=== PATIENT | female | born 1975 | race African-American/Black ===

== ENCOUNTER 2017-06-10 23:06 | Emergency (ER) | payer BC ==
[2017-06-10 23:16] VITALS: BP 188/100
--- NOTE | 2017-06-11 00:49 | RADIOLOGY REPORT (SQ) ---
EXAM DESCRIPTION: KNEE LEFT 3 VIEWS COMPLETED DATE/TIME: 06/11/2017 12:34 am REASON FOR STUDY: fall . Pain anterior left knee. COMPARISON: Left knee x-ray 05/06/2010. NUMBER OF VIEWS: Three views. TECHNIQUE: AP, lateral, and sunrise patella radiographic images acquired of the left knee. LIMITATIONS: Patient's body habitus and positioning. FINDINGS: MINERALIZATION: Normal. BONES: No acute fracture or dislocation. There are tricompartmental degenerative changes, worse at t he patellofemoral compartment. JOINT: Small effusion. SOFT TISSUES: No radio-opaque foreign body. IMPRESSION: No radiographic evidence of acute fracture. Small joint effusion. Degenerative changes . If clinical concern persists, MRI can be obtained to evaluate for ligamentous injury. TECHNICAL DOCUMENTATION: JOB ID: [id number] 2010 [employer] All Rights Reserved
--- NOTE | 2017-06-11 00:53 | RADIOLOGY REPORT (SQ) ---
EXAM DESCRIPTION: FOOT RIGHT COMPLETE COMPLETED DATE/TIME: 06/11/2017 12:34 am REASON FOR STUDY: fall . Pain lateral side right foot. COMPARISON: None. NUMBER OF VIEWS: Three views. TECHNIQUE: AP, lateral and oblique radiographic images acquired of the right foot. LIMITATIONS: None. FINDINGS: MINERALIZATION: Normal. BONES: No acute fracture or dislocation. Degenerative changes are seen at the 1st metatarsophalangea l joint. Bony spurs are noted at the calcaneus. SOFT TISSUES: No radiopaque foreign body. IMPRESSION: No radiographic evidence of acute fracture. TECHNICAL DOCUMENTATION: JOB ID: [id number] 2010 [employer]- All Rights Reserved
--- NOTE | 2017-06-11 01:20 | ER Document Report ---
ED General - General Chief Complaint: Fall Stated Complaint: FOOT AND KNEE PAIN Time Seen by Provider: 06/10/17 23:58 Notes: Patient is a 41-year-old female with past medical history of morbid obesity who presents after having a mechanical fall landing onto her left knee and twisting her right ankle. She presents complaining of a dull, constant, aching pain to the left knee and the right ankle as well as the base of the right foot. Denies any syncope as the cause for today's episode. States she believes she tripped over something while walking out of her car. No history of similar injuries in the past. She has tried pain medication that she has at home without significant improvement in her pain. TRAVEL OUTSIDE OF THE [place] IN LAST 30 DAYS: No - Related Data Allergies/Adverse Reactions: Penicillins Allergy (Intermediate, Verified 06/10/17 23:14) Hives Past Medical History - General Information source: Patient - Social History Smoking Status: Never Smoker Frequency of alcohol use: None Drug Abuse: None Family History: Arthritis, CAD, CVA, DM, Hyperlipidemia, Hypertension, Malignancy Patient has suicidal ideation: No Patient has homicidal ideation: No - Past Medical History Cardiac Medical History: Reports: Hx Hypertension Denies: Hx Coronary Artery Disease, Hx Heart Attack Pulmonary Medical History: Denies: Hx Asthma, Hx Bronchitis, Hx COPD, Hx Pneumonia Neurological Medical History: Denies: Hx Cerebrovascular Accident, Hx Seizures Renal/ Medical History: Denies: Hx Peritoneal Dialysis Musculoskeltal Medical History: Reports Hx Arthritis Past Surgical History: Reports: Hx Gynecologic Surgery - ovarian cyst, Hx Hysterectomy, Hx Tonsillectomy - addenoidectomy, Hx Tubal Ligation - Immunizations Hx Diphtheria, Pertussis, Tetanus Vaccination: Yes Review of Systems - Review of Systems Notes: Constitutional: Negative for fever. Eyes: Negative for visual changes. ENT: Negative for facial injury Cardiovascular: Negative for chest injury. Respiratory: Negative for shortness of breath. Gastrointestinal: Negative for abdominal injury. Genitourinary: Negative for genital injury Musculoskeletal: Positive for left knee and right ankle injury Skin: Positive for left lower extremity abrasions Neurological: Negative for head injury. Physical Exam - Vital signs Vitals: Temp Pulse Resp BP Pulse Ox 97.7 F 73 18 188/100 H 98 06/10/17 23:15 06/10/17 23:15 06/10/17 23:15 06/10/17 23:15 06/10/17 23:15 Interpretation: Hypertensive Notes: PHYSICAL EXAMINATION: GENERAL: Well-appearing, well-nourished and in no acute distress. HEAD: Atraumatic, normocephalic. EYES: sclera anicteric, conjunctiva are normal. ENT: Moist mucous membranes. NECK: Normal range of motion LUNGS: Normal work of breathing HEART: 2+ radial pulses bilaterally EXTREMITIES: Mild swelling to the left knee. Full flexion extension is present at the left knee. There is diffuse swelling of the right ankle. Point tenderness on palpation of the right lateral malleolus. NEUROLOGICAL: No focal neurological deficits. Moves all extremities spontaneously and on command. PSYCH: Normal mood, normal affect. SKIN: Warm, Dry, normal turgor, superficial abrasions on the proximal tibial surface Course - Re-evaluation Re-evalutation: 06/11/17 01:19 No evidence of a septic joint, gout flare, dislocation, or fracture on exam and imaging. Patient denies any syncopal episode as the preceding event for today' s fall. She did not hit her head or neck. Vitals otherwise within normal limits. She has been placed in a knee brace on the left and Puma wrapped on the right. At this time will discharge with return precautions and follow-up recommendations. Verbal discharge instructions given a the bedside and opportunity for questions given. Medication warnings reviewed. Patient is in agreement with this plan and has verbalized understanding of return precautions and the need for primary care follow-up in the next 24-72 hours. - Vital Signs Vital signs: Temp Pulse Resp BP Pulse Ox 97.7 F 73 18 188/100 H 98 06/10/17 23:15 06/10/17 23:15 06/10/17 23:15 06/10/17 23:15 06/10/17 23:15 - Diagnostic Test Radiology reviewed: Image reviewed, Reports reviewed Radiology results interpreted by me: 06/11/17 03:04 Left knee x-ray: No acute fracture or dislocation Right ankle: No acute fracture or dislocation Right foot: No acute fracture or dislocation Discharge - Discharge Clinical Impression: Fall Qualifiers: Encounter type: initial encounter Qualified Code(s): W19.XXXA - Unspecified fall, initial encounter Left knee injury Qualifiers: Encounter type: initial encounter Qualified Code(s): S89.92XA - Unspecified injury of left lower leg, initial encounter Right ankle injury Qualifiers: Encounter type: initial encounter Qualified Code(s): S99.911A - Unspecified injury of right ankle, initial encounter Condition: Good Disposition: HOME, SELF-CARE Additional Instructions: Your x-ray does not show any acute fracture today. You likely have a ligamentous strain. You should continue to take anti-inflammatories such as ibuprofen 600 mg every 6 hours. Continue to apply ice to the area is much your able. Please follow-up with your primary care physician if you do not have improving your symptoms in the next 1-2 weeks. Please return immediately if you develop weakness, numbness, spreading redness from the area, or any other symptoms that are concerning to you. Referrals: GLORIA LEIGH MD [Primary Care Provider] - Follow up as needed ALVAREZ TOLEDO MD [ACTIVE STAFF] - Follow up as needed
--- NOTE | 2017-06-11 02:47 | RADIOLOGY REPORT (SQ) ---
EXAM DESCRIPTION: ANKLE RIGHT COMPLETE COMPLETED DATE/TIME: 06/11/2017 1:49 am REASON FOR STUDY: fall COMPARISON: None. NUMBER OF VIEWS: Three views. TECHNIQUE: AP, lateral, and oblique radiographic images acquired of the right ankle. LIMITATIONS: None. FINDINGS: MINERALIZATION: Normal. BONES: No acute fracture or dislocation. Bony spurs are seen at the calcaneus. SOFT TISSUES: Diffuse soft tissue swelling. No radiopaque foreign body. IMPRESSION: No radiographic evidence for acute fracture. Diffuse soft tissue swelling. TECHNICAL DOCUMENTATION: JOB ID: [id number] [place]-[id number] 2010 [employer]- All Rights Reserved
== END 2017-06-11 04:19 | disposition home or self-care (01) ==
LOC: EEVIPCON 23:06 → ER 23:06
DX: S89.92XA Unspecified injury of left lower leg, initial encounter (principal); S99.911A Unspecified injury of right ankle, initial encounter; M25.562 Pain in left knee; M25.571 Pain in right ankle and joints of right foot; E66.01 Morbid (severe) obesity due to excess calories; W19.XXXA Unspecified fall, initial encounter
CPT/HCPCS: 99283; 73610; 73630; 73562; L1830

== ENCOUNTER → 2018-04-13 | Outpatient (CLI) | payer BC ==
[2018-04-13 11:36] LABS: ALANINE AMINOTRANSFERASE 17 U/L (9-52); ALBUMIN 3.9 g/dL (3.5-5.0); ALKALINE PHOSPHATASE 91 U/L (38-126); ANION GAP 10 (5-19); ASPARTATE AMINO TRANSFERASE 17 U/L (14-36); BILIRUBIN,DIRECT 0.4 mg/dL (0.0-0.4); BILIRUBIN,TOTAL 0.4 mg/dL (0.2-1.3); BLOOD UREA NITROGEN 14 mg/dL (7-20); CALCIUM 9.2 mg/dL (8.4-10.2); CARBON DIOXIDE 33 mmol/L (22-30); CHLORIDE 103 mmol/L (98-107); CHOLESTEROL 177.77 mg/dL (0-200); GLUCOSE 91 mg/dL (75-110); POTASSIUM 4.7 mmol/L (3.6-5.0); TOTAL PROTEIN 8.2 g/dL (6.3-8.2); TRIGLYCERIDES 42 mg/dL (<150)
[2018-04-13 11:47] LABS: THYROXINE T4 8.54 ug/dL (5.53-11.0)
[2018-04-13 11:48] LABS: DIRECT LDL 81 mg/dL (<100); FREE T3 3.87 pg/mL (2.77-5.27)
[2018-04-13 12:02] LABS: THYROID STIMULATING HORMONE 1.54 uIU/mL (0.47-4.68)
== END ==
LOC: OD 09:24
PROVIDERS: ATTEND Internal Medicine Cardiovascular Disease
DX: I10 Essential (primary) hypertension (principal); E66.9 Obesity, unspecified; R53.83 Other fatigue
CPT/HCPCS: 36415; 80053; 80061; 82306; 82607; 82728; 83036; 83525; 84436; 84443; 84481

== ENCOUNTER 2019-01-24 07:47 | Emergency (ER) | payer BC ==
--- NOTE | 2019-01-24 09:38 | ER Document Report ---
ED General - General Chief Complaint: Vertigo Stated Complaint: DIZZINESS/HEADACHE/BACK PAIN Time Seen by Provider: 01/24/19 08:36 Primary Care Provider: GLORIA LEIGH MD [Primary Care Provider] - Follow up as needed Notes: 43-year-old female patient emergency department for evaluation of dizziness. Patient states that when she lies backwards she gets extremely dizzy but sitting upright no dizziness. She has a headache associated with this. Denies any fever or neck stiffness. Denies any other major symptoms. Does have some mild blurred vision. Head movement does seem to make it worse but mostly when she lies down the dizziness comes on. TRAVEL OUTSIDE OF THE [place] IN LAST 30 DAYS: No - Related Data Allergies/Adverse Reactions: Penicillins Allergy (Intermediate, Verified 06/10/17 23:14) Hives Past Medical History - General Information source: Patient - Social History Smoking Status: Never Smoker Frequency of alcohol use: None Drug Abuse: None Lives with: Family Family History: Arthritis, CAD, CVA, DM, Hyperlipidemia, Hypertension, Malignancy Patient has suicidal ideation: No Patient has homicidal ideation: No - Past Medical History Cardiac Medical History: Reports: Hx Hypertension Denies: Hx Coronary Artery Disease, Hx Heart Attack Pulmonary Medical History: Denies: Hx Asthma, Hx Bronchitis, Hx COPD, Hx Pneumonia Neurological Medical History: Denies: Hx Cerebrovascular Accident, Hx Seizures Renal/ Medical History: Denies: Hx Peritoneal Dialysis Musculoskeletal Medical History: Reports Hx Arthritis Past Surgical History: Reports: Hx Gynecologic Surgery - ovarian cyst, Hx Hysterectomy, Hx Tonsillectomy - addenoidectomy, Hx Tubal Ligation - Immunizations Hx Diphtheria, Pertussis, Tetanus Vaccination: Yes Review of Systems - Review of Systems Notes: Constitutional: denies: Chills, Diaphoresis, Fever, Malaise, Weakness EENT: denies: Eye discharge, Blurred vision, Tearing, Double vision, Nose congestion, Nose discharge, Throat swelling, Mouth pain Cardiovascular: denies: Palpitations, Heart racing, Orthopnea, Dyspnea, Chest pain Respiratory: denies: Cough, Hurts to breathe, Wheezing, Shortness of breath Gastrointestinal: denies: Abdominal pain, Diarrhea, Nausea, Vomiting, Black stools, bright red blood in stool Genitourinary: denies: Burning, Dysuria, Discharge, Frequency, Flank pain, Hematuria Musculoskeletal: denies: Joint pain, Joint swelling, Muscle pain, Muscle s tiffness, back pain Hematologic/Lymphatic: denies: Anemia, Easy bleeding, Easy bruising, Blood leesa ts Neurological/Psychological: denies: Confusion, Dementia, Depression, Loss of consciousness. Is complaining of headache and dizziness Skin: No lesions, no masses, no skin breakdown, no abscesses Physical Exam - Vital signs Vitals: Temp Pulse Resp BP Pulse Ox 98.0 F 84 18 157/118 H 100 01/24/19 07:54 01/24/19 07:54 01/24/19 07:54 01/24/19 07:54 01/24/19 07:54 Interpretation: Normal - General General appearance: Appears well, Alert - HEENT Head: Normocephalic, Atraumatic Eyes: Normal Pupils: PERRL - Respiratory Respiratory status: No respiratory distress Chest status: Nontender Breath sounds: Normal Chest palpation: Normal - Cardiovascular Rhythm: Regular Heart sounds: Normal auscultation Murmur: No - Abdominal Inspection: Normal Distension: No distension Bowel sounds: Normal Tenderness: Nontender Organomegaly: No organomegaly - Back Back: Normal, Nontender - Extremities General upper extremity: Normal inspection, Nontender, Normal color, Normal ROM, Normal temperature General lower extremity: Normal inspection, Nontender, Normal color, Normal ROM, Normal temperature, Normal weight bearing. No: Lucía's sign - Neurological Neuro grossly intact: Yes Cognition: Normal Orientation: AAOx4 Srinath Coma Scale Eye Opening: Spontaneous [place] Coma Scale Verbal: Oriented Srinath Coma Scale Motor: Obeys Commands Srinath Coma Scale Total: 15 Speech: Normal Cranial nerves: Normal Cerebellar coordination: Normal Motor strength normal: LUE, RUE, LLE, RLE Sensory: Normal Notes: When I dropped the head of the bed down with patient looking to the left or to the right she does begin to get dizzy but she has no nystagmus. No rotary nystagmus. No horizontal nystagmus. - Psychological Associated symptoms: Normal affect, Normal mood - Skin Skin Temperature: Warm Skin Moisture: Dry Skin Color: Normal Course - Re-evaluation Re-evalutation: 01/24/19 13:08 Laboratory 01/24/19 01/24/19 01/24/19 09:06 10:05 10:05 WBC 8.0 RBC 4.03 Hgb 10.4 L Hct 32.0 L MCV 79 L MCH 25.7 L MCHC 32.4 RDW 15.3 H Plt Count 196 Seg Neutrophils % 61.4 Lymphocytes % 28.9 Monocytes % 8.1 Eosinophils % 1.0 Basophils % 0.6 Absolute Neutrophils 4.9 Absolute Lymphocytes 2.3 Absolute Monocytes 0.6 Absolute Eosinophils 0.1 Absolute Basophils 0.0 Sodium 143.1 Potassium 4.3 Chloride 106 Carbon Dioxide 29 Anion Gap 8 BUN 16 Creatinine 0.80 Est GFR ( Amer) > 60 Est GFR (Non-Af Amer) > 60 Glucose 103 Hemoglobin A1c % Calcium 9.4 Total Bilirubin 0.5 Direct Bilirubin 0.3 Neonat Total Bilirubin Not Reportable Neonat Direct Bilirubin Not Reportable Neonat Indirect Bili Not Reportable AST 28 ALT 23 Alkaline Phosphatase 90 Creatine Kinase 73 CK-MB (CK-2) Troponin I Total Protein 8.7 H Albumin 4.0 Urine Color YELLOW Urine Appearance SLIGHTLY-CLOUDY Urine pH 5.0 Ur Specific Secor 1.020 Urine Protein NEGATIVE Urine Glucose (UA) NEGATIVE Urine Ketones NEGATIVE Urine Blood NEGATIVE Urine Nitrite NEGATIVE Urine Bilirubin NEGATIVE Urine Urobilinogen NEGATIVE Ur Leukocyte Esterase NEGATIVE Urine WBC (Auto) 1 Urine RBC (Auto) 0 U Hyaline Cast (Auto) 1 Urine Bacteria (Auto) 3+ Squamous Epi Cells Auto 1 Urine Mucus (Auto) RARE Urine Ascorbic Acid NEGATIVE 01/24/19 01/24/19 10:05 10:05 WBC RBC Hgb Hct MCV MCH MCHC RDW Plt Count Seg Neutrophils % Lymphocytes % Monocytes % Eosinophils % Basophils % Absolute Neutrophils Absolute Lymphocytes Absolute Monocytes Absolute Eosinophils Absolute Basophils Sodium Potassium Chloride Carbon Dioxide Anion Gap BUN Creatinine Est GFR ( Amer) Est GFR (Non-Af Amer) Glucose Hemoglobin A1c % 5.4 Calcium Total Bilirubin Direct Bilirubin Neonat Total Bilirubin Neonat Direct Bilirubin Neonat Indirect Bili AST ALT Alkaline Phosphatase Creatine Kinase CK-MB (CK-2) < 0.22 Troponin I < 0.012 Total Protein Albumin Urine Color Urine Appearance Urine pH Ur Specific Secor Urine Protein Urine Glucose (UA) Urine Ketones Urine Blood Urine Nitrite Urine Bilirubin Urine Urobilinogen Ur Leukocyte Esterase Urine WBC (Auto) Urine RBC (Auto) U Hyaline Cast (Auto) Urine Bacteria (Auto) Squamous Epi Cells Auto Urine Mucus (Auto) Urine Ascorbic Acid 01/24/19 13:[address] 01/24/19 09:38 IMPRESSION: No acute intracranial pathology. No noncontrast CT findings to explain headache or dizziness. EVIDENCE OF ACUTE STROKE: NO. Head MRI 01/24/19 10:38 IMPRESSION: No acute noncontrast MR abnormality of the brain. No evidence of acute diffusion restricting infarction. EVIDENCE OF ACUTE STROKE: NO. There is no evidence of stroke. Labs are unremarkable. At this time her blood pressure is high. We will treat her with some meclizine as well as some anti- tensive occasions and discharge at this time. - Vital Signs Vital signs: Temp Pulse Resp BP Pulse Ox 97.4 F 80 18 165/107 H 100 01/24/19 12:34 01/24/19 12:32 01/24/19 07:54 01/24/19 12:32 01/24/19 12:32 - Laboratory Result Diagrams: 01/24/19 10:05 01/24/19 10:05 Laboratory results interpreted by me: 01/24/19 01/24/19 10:05 10:05 Hgb 10.4 L Hct 32.0 L MCV 79 L MCH 25.7 L RDW 15.3 H Total Protein 8.7 H Discharge - Discharge Clinical Impression: Vertigo Hypertension Qualifiers: Hypertension type: unspecified Qualified Code(s): I10 - Essential (primary) hypertension Condition: Good Disposition: HOME, SELF-CARE Instructions: High Blood Pressure, Requiring Treatment ([facility]), Vertigo ([facility]) Prescriptions: Meclizine HCl [Antivert 25 mg Tablet] 25 mg PO TID #30 tablet Valsartan [Diovan 80 mg Tablet] 80 mg PO DAILY #30 tablet Forms: Return to Work Referrals: GLORIA LEIGH MD [Primary Care Provider] - Follow up as needed
--- NOTE | 2019-01-24 09:57 | RADIOLOGY REPORT (SQ) ---
EXAM DESCRIPTION: CT HEAD WITHOUT COMPLETED DATE/TIME: 01/24/2019 9:47 am REASON FOR STUDY: dizziness with headache COMPARISON: None. TECHNIQUE: Axial images acquired through the brain without intravenous contrast. Images reviewed wi th bone, brain and subdural windows. Additional sagittal and coronal reconstructions were generated. Images stored on PACS. All CT scanners at this facility use dose modulation, iterative reconstruction, and/or weight based d osing when appropriate to reduce radiation dose to as low as reasonably achievable (ALARA). [facility]: Dose Right [facility]: CareDose [facility]: Dose Right [facility]: Teradose 4D [facility]: Smart [employer] RADIATION DOSE: CT Rad equipment meets quality standard of care and radiation dose reduction techniq ues were employed. CTDIvol: 53.2 mGy. DLP: 1044 mGy-cm. mGy. LIMITATIONS: None. FINDINGS: VENTRICLES: Normal size and contour. CEREBRUM: No masses. No hemorrhage. No midline shift. No evidence for acute infarction. Normal gra y/white matter differentiation. No areas of low density in the white matter. CEREBELLUM: No masses. No hemorrhage. No alteration of density. No evidence for acute infarction. EXTRAAXIAL SPACES: No fluid collections. No masses. ORBITS AND GLOBE: No intra- or extraconal masses. Normal contour of globe without masses. CALVARIUM: No fracture. PARANASAL SINUSES: No fluid or mucosal thickening. SOFT TISSUES: No mass or hematoma. OTHER: No other significant finding. IMPRESSION: No acute intracranial pathology. No noncontrast CT findings to explain headache or dizz iness. EVIDENCE OF ACUTE STROKE: NO. COMMENT: Quality ID # [id number]: Final reports with documentation of one or more dose reduction techniques (e.g., Automated exposure control, adjustment of the mA and/or kV according to patient size, use of iterative reconstruction technique) TECHNICAL DOCUMENTATION: JOB ID: [id number] [employer]- All Rights Reserved Reading location - IP/workstation name: [email or web address]
[2019-01-24 10:07] LABS: APPEARANCE,URINE SLIGHTLY-CLOUDY; BILIRUBIN,URINE NEGATIVE (NEGATIVE); COLOR,URINE YELLOW; GLUCOSE, URINE NEGATIVE (NEGATIVE); KETONES,URINE NEGATIVE (NEGATIVE); LEUKOCYTE ESTERASE,URINE NEGATIVE (NEGATIVE); NITRITE,URINE NEGATIVE (NEGATIVE); PROTEIN,URINE NEGATIVE (NEGATIVE); UROBILINOGEN,URINE NEGATIVE mg/dL (<2.0)
[2019-01-24 10:38] LABS: ABSOLUTE EOSINOPHILS # (AUTO) 0.1 10^3/uL (0.0-0.6); ABSOLUTE LYMPHOCYTES (AUTO) 2.3 10^3/uL (0.5-4.7); ABSOLUTE MONOCYTES (AUTO) 0.6 10^3/uL (0.1-1.4); ABSOLUTE NEUT (AUTO) 4.9 10^3/uL (1.7-8.2); BASOPHILS % (AUTO) 0.6 % (0-2); HEMOGLOBIN 10.4 g/dL (12.0-15.5); LYMPHOCYTES % (AUTO) 28.9 % (13-45); MEAN CORPUSCULAR HEMOGLOBIN 25.7 pg (27.0-33.4); MEAN CORPUSCULAR HGB CONC 32.4 g/dL (32.0-36.0); MEAN CORPUSCULAR VOLUME 79 fl (80-97); MONOCYTES % (AUTO) 8.1 % (3-13); PLATELET COUNT 196 10^3/uL (150-450); RED BLOOD COUNT 4.03 10^6/uL (3.72-5.28); RED CELL DISTRIBUTION WIDTH 15.3 % (11.5-14.0); SEGMENTED NEUTROPHILS % (AUTO) 61.4 % (42-78); TOTAL CELLS COUNTED % (AUTO) 100 %
[2019-01-24 10:55] LABS: ALANINE AMINOTRANSFERASE 23 U/L (9-52); ALKALINE PHOSPHATASE 90 U/L (38-126); ANION GAP 8 (5-19); ASPARTATE AMINO TRANSFERASE 28 U/L (14-36); BILIRUBIN,DIRECT 0.3 mg/dL (0.0-0.4); BILIRUBIN,TOTAL 0.5 mg/dL (0.2-1.3); BLOOD UREA NITROGEN 16 mg/dL (7-20); CALCIUM 9.4 mg/dL (8.4-10.2); CARBON DIOXIDE 29 mmol/L (22-30); CHLORIDE 106 mmol/L (98-107); CREATINE KINASE 73 U/L (30-135); GLUCOSE 103 mg/dL (75-110); POTASSIUM 4.3 mmol/L (3.6-5.0); SODIUM 143.1 mmol/L (137-145); TOTAL PROTEIN 8.7 g/dL (6.3-8.2)
[2019-01-24 10:58] LABS: CREATINE KINASE MB < 0.22 ng/mL (<4.55); TROPONIN I < 0.012 ng/mL
--- NOTE | 2019-01-24 11:05 | EKG REPORT ---
SEVERITY:- ABNORMAL ECG - SINUS RHYTHM PROBABLE LEFT ATRIAL ABNORMALITY PROBABLE LEFT VENTRICULAR HYPERTROPHY : Confirmed by: Sneha Belcher 24-Jan-2019 11:05:04
--- NOTE | 2019-01-24 12:46 | RADIOLOGY REPORT (SQ) ---
EXAM DESCRIPTION: MRI HEAD WITHOUT COMPLETED DATE/TIME: 01/24/2019 12:25 pm REASON FOR STUDY: dizziness and headache COMPARISON: CT brain, 01/24/2019 TECHNIQUE: Multiplanar imaging includes non-contrasted T1, T2, FLAIR, and diffusion with ADC map seq uences. Images stored on PACS. LIMITATIONS: None. FINDINGS: ANATOMY: No anomalies. Normal vascular flow voids. Pituitary fossa normal. CSF SPACES: Normal in size and contour. No hemorrhage. CEREBRUM: Sulci and gyri normal in size and contour. Normal white matter signal on FLAIR imaging. No evidence of hemorrhage, mass, or extraaxial fluid collection. POSTERIOR FOSSA: No signal alteration. No hemorrhage. No edema, masses or mass effect. Internal shawn tory canals, cerebello-pontine angles, mastoids normal. DIFFUSION IMAGING: Negative for acute or sub-acute infarction. ORBITS: No masses. Globes normal. PARANASAL SINUSES: No fluid levels. Mucosa normal. OTHER: No other significant finding. IMPRESSION: No acute noncontrast MR abnormality of the brain. No evidence of acute diffusion restri cting infarction. EVIDENCE OF ACUTE STROKE: NO. TECHNICAL DOCUMENTATION: JOB ID: [id number] [employer]- All Rights Reserved Reading location - IP/workstation name: [email or web address]
[2019-01-24] MEDS ORDERED: VALSARTAN 80 MG TABLET PO ONE (13:15)
[2019-01-24] MEDS ORDERED: MECLIZINE HCL 25 MG TABLET PO ONE (13:15)
[2019-01-24 13:41] VITALS: BP 184/124
== END 2019-01-24 13:42 | disposition home or self-care (01) ==
LOC: ER 07:47
DX: R42 Dizziness and giddiness (principal); I10 Essential (primary) hypertension; R51 Headache; M54.9 Dorsalgia, unspecified; Z88.0 Allergy status to penicillin; Z90.710 Acquired absence of both cervix and uterus
CPT/HCPCS: 93005; 99284; 36415; 82553; 82550; 85025; 80053; 81001; 84484; 83036; 70551; 70450; 93010; J3490

== ENCOUNTER → 2019-03-14 | Outpatient (CLI) | payer BC ==
[2019-03-14 17:53] LABS: ALANINE AMINOTRANSFERASE 14 U/L (9-52); ALKALINE PHOSPHATASE 82 U/L (38-126); ANION GAP 14 (5-19); ASPARTATE AMINO TRANSFERASE 14 U/L (14-36); BILIRUBIN,DIRECT 0.3 mg/dL (0.0-0.4); BILIRUBIN,TOTAL 0.3 mg/dL (0.2-1.3); BLOOD UREA NITROGEN 18 mg/dL (7-20); CALCIUM 9.1 mg/dL (8.4-10.2); CARBON DIOXIDE 27 mmol/L (22-30); CHLORIDE 105 mmol/L (98-107); GLUCOSE 115 mg/dL (75-110); POTASSIUM 4.5 mmol/L (3.6-5.0); SODIUM 145.6 mmol/L (137-145); TOTAL PROTEIN 8.1 g/dL (6.3-8.2)
== END ==
LOC: OD 15:54
PROVIDERS: ATTEND Physician Assistant Medical
DX: I10 Essential (primary) hypertension (principal)
CPT/HCPCS: 36415; 80053

== ENCOUNTER → 2019-04-29 | Outpatient (CLI) | payer BC | LOC: OD 14:34 | PROVIDERS: ATTEND Internal Medicine | DX: M15.0 Primary generalized (osteo)arthritis (principal) | CPT/HCPCS: 36415; 85652; 86140; 86200 ==

== ENCOUNTER 2019-07-10 01:06 | Emergency (ER) | payer BC ==
[2019-07-10] MEDS ORDERED: ACETAMINOPHEN 325 MG TABLET PO ONE (01:51)
[2019-07-10 01:56] VITALS: BP 172/104
[2019-07-10] MEDS ORDERED: ONDANSETRON HCL INJ/PF 4 MG/2 ML SDV IV ONE (02:01)
--- NOTE | 2019-07-10 02:01 | ER Document Report ---
ED General - General Chief Complaint: High Blood Pressure Stated Complaint: HIGH BLOOD PRESSURE,FEVER,HEADACHE Time Seen by Provider: 07/10/19 01:45 Primary Care Provider: CALLY HANDY MD [NO LOCAL MD] - Follow up as needed TRAVEL OUTSIDE OF THE [place] IN LAST 30 DAYS: No - HPI Notes: 43-year-old female presents with fever not feeling well. Known history of hypertension. Gradual onset earlier today, fever up to 102+, chills, sore throat, worse with swallowing. No real cough. No recent travel. No rash. No photophobia. No neck pain or stiffness. Mild bifrontal headache, gradual onset, nonradiating. No other modifying factors, no other associated symptoms, no other provocative or palliative factors. - Related Data Allergies/Adverse Reactions: Penicillins Allergy (Intermediate, Verified 06/10/17 23:14) Hives Past Medical History - Social History Smoking Status: Unknown if Ever Smoked Family History: Arthritis, CAD, CVA, DM, Hyperlipidemia, Hypertension, Malignancy - Past Medical History Cardiac Medical History: Reports: Hx Hypertension Denies: Hx Coronary Artery Disease, Hx Heart Attack Pulmonary Medical History: Denies: Hx Asthma, Hx Bronchitis, Hx COPD, Hx Pneumonia Neurological Medical History: Denies: Hx Cerebrovascular Accident, Hx Seizures Renal/ Medical History: Denies: Hx Peritoneal Dialysis Musculoskeletal Medical History: Reports Hx Arthritis Past Surgical History: Reports: Hx Gynecologic Surgery - ovarian cyst, Hx Hysterectomy, Hx Tonsillectomy - addenoidectomy, Hx Tubal Ligation - Immunizations Hx Diphtheria, Pertussis, Tetanus Vaccination: Yes Review of Systems - Review of Systems Notes: Review of systems as in the history of present illness, otherwise negative x 10 systems. Physical Exam - Vital signs Vitals: Temp Pulse Resp Pulse Ox 102.9 F H 106 H 22 H 96 07/10/19 01:51 07/10/19 01:51 07/10/19 01:51 07/10/19 01:51 - Notes Notes: Well-appearing female with fever, likely viral illness. Will check rapid strep screen, basic labs, serial exams. Hydrate, treat with antiemetics. Blood pressure substantially elevated, may be related to discomfort, doubt ICH. Will closely monitor blood pressure and reevaluate Course - Re-evaluation Re-evalutation: 07/10/19 03:48 Labs reviewed, CBC unremarkable, chemistry unremarkable. Rapid strep screen is positive. Chest x-ray shows no acute infiltrate. Patient blood pressure does remain somewhat high, due for morning dose and oxygen 4 to 5 hours. Give a single dose of clonidine is judiciously begin lowering her blood pressure, she is to have this rechecked over the next 24 to 48 hours. Otherwise nontoxic in appearance. Patient is pen allergic, will treat with azithromycin and a prescription for the same 07/10/19 03:51 - Vital Signs Vital signs: Temp Pulse Resp BP Pulse Ox 102.9 F H 106 H 22 H 172/104 H 96 07/10/19 01:51 07/10/19 01:51 07/10/19 01:51 07/10/19 01:55 07/10/19 01:51 - Laboratory Result Diagrams: 07/10/19 02:16 07/10/19 01:33 Laboratory results interpreted by me: 07/10/19 07/10/19 01:33 02:16 WBC 11.8 H Hgb 10.5 L Hct 32.7 L MCV 79 L MCH 25.4 L RDW 14.6 H Lymph % (Auto) 12.9 L Absolute Neuts (auto) 9.4 H Seg Neutrophils % 80.0 H Sodium 136.8 L Chloride 97 L Discharge - Discharge Clinical Impression: Strep pharyngitis, Uncontrolled hypertension Condition: Good Disposition: HOME, SELF-CARE Instructions: High Blood Pressure, Requiring Treatment ([facility]), Strep Throat ([facility]) Prescriptions: Azithromycin 250 mg PO DAILY #4 tablet Referrals: CALLY HANDY MD [NO LOCAL MD] - Follow up in 3-5 days
[2019-07-10 02:11] LABS: ANION GAP 14 (5-19); BLOOD UREA NITROGEN 18 mg/dL (7-20); CALCIUM 9.1 mg/dL (8.4-10.2); CARBON DIOXIDE 26 mmol/L (22-30); CHLORIDE 97 mmol/L (98-107); GLUCOSE 98 mg/dL (75-110); POTASSIUM 4.4 mmol/L (3.6-5.0)
[2019-07-10 02:53] LABS: APPEARANCE,URINE SLIGHTLY-CLOUDY; BILIRUBIN,URINE NEGATIVE (NEGATIVE); COLOR,URINE YELLOW; GLUCOSE, URINE NEGATIVE (NEGATIVE); KETONES,URINE NEGATIVE (NEGATIVE); LEUKOCYTE ESTERASE,URINE NEGATIVE (NEGATIVE); NITRITE,URINE NEGATIVE (NEGATIVE); PROTEIN,URINE NEGATIVE (NEGATIVE); URINE SPECIFIC GRAVITY 1.014; UROBILINOGEN,URINE NEGATIVE mg/dL (<2.0)
[2019-07-10 03:01] LABS: ABSOLUTE BASOPHILS # (AUTO) 0.1 10^3/uL (0.0-0.2); ABSOLUTE LYMPHOCYTES (AUTO) 1.5 10^3/uL (0.5-4.7); ABSOLUTE MONOCYTES (AUTO) 0.7 10^3/uL (0.1-1.4); ABSOLUTE NEUT (AUTO) 9.4 10^3/uL (1.7-8.2); BASOPHILS % (AUTO) 0.6 % (0-2); EOSINOPHILS % (AUTO) 0.1 % (0-6); HEMATOCRIT 32.7 % (36.0-47.0); HEMOGLOBIN 10.5 g/dL (12.0-15.5); LYMPHOCYTES % (AUTO) 12.9 % (13-45); MEAN CORPUSCULAR HEMOGLOBIN 25.4 pg (27.0-33.4); MEAN CORPUSCULAR HGB CONC 32.1 g/dL (32.0-36.0); MEAN CORPUSCULAR VOLUME 79 fl (80-97); MONOCYTES % (AUTO) 6.4 % (3-13); PLATELET COUNT 176 10^3/uL (150-450); RED BLOOD COUNT 4.13 10^6/uL (3.72-5.28); RED CELL DISTRIBUTION WIDTH 14.6 % (11.5-14.0); TOTAL CELLS COUNTED % (AUTO) 100 %; WHITE BLOOD COUNT 11.8 10^3/uL (4.0-10.5)
--- NOTE | 2019-07-10 03:12 | RADIOLOGY REPORT (SQ) ---
EXAM DESCRIPTION: XR CHEST 2 VIEWS COMPLETED DATE/TME: 07/10/2019 01:51 CLINICAL HISTORY: 43 years Female, Fever COMPARISON: None. FINDINGS: Adequate lung volume, pulmonary vascular congestion, normal cardiac silhouette, and intact bony thorax. IMPRESSION: Pulmonary vascular congestion.
[2019-07-10] MEDS ORDERED: CLONIDINE HCL 0.2 MG TABLET PO ONE (03:45)
[2019-07-10] MEDS ORDERED: AZITHROMYCIN 250 MG TABLET PO ONE (03:46)
== END 2019-07-10 04:22 | disposition home or self-care (01) ==
LOC: ER 01:06
DX: J02.0 Streptococcal pharyngitis (principal); I10 Essential (primary) hypertension; R50.9 Fever, unspecified; R51 Headache; J02.9 Acute pharyngitis, unspecified; R13.10 Dysphagia, unspecified
CPT/HCPCS: 99283; 96374; 36415; 87040; 87880; 85025; 80048; 81001; 83605; 71046; J2405

== ENCOUNTER → 2019-07-17 | Outpatient (CLI) | payer BC ==
[2019-07-17 11:36] LABS: ALBUMIN 3.9 g/dL (3.5-5.0); ALKALINE PHOSPHATASE 82 U/L (38-126); ANION GAP 8 (5-19); ASPARTATE AMINO TRANSFERASE 21 U/L (14-36); BILIRUBIN,DIRECT 0.2 mg/dL (0.0-0.4); BILIRUBIN,TOTAL 0.3 mg/dL (0.2-1.3); BLOOD UREA NITROGEN 19 mg/dL (7-20); CALCIUM 9.4 mg/dL (8.4-10.2); CARBON DIOXIDE 31 mmol/L (22-30); CHLORIDE 103 mmol/L (98-107); CHOLESTEROL 207.42 mg/dL (0-200); GLUCOSE 102 mg/dL (75-110); POTASSIUM 4.9 mmol/L (3.6-5.0); TOTAL PROTEIN 8.6 g/dL (6.3-8.2); TRIGLYCERIDES 77 mg/dL (<150)
[2019-07-17 11:47] LABS: DIRECT LDL 124 mg/dL (<100)
== END ==
LOC: OD 10:44
PROVIDERS: ATTEND Physician Assistant Medical
DX: I10 Essential (primary) hypertension (principal)
CPT/HCPCS: 36415; 80053; 80061; 82306; 83036

== ENCOUNTER 2020-04-29 13:17 | Emergency (ER) | payer BC ==
--- NOTE | 2020-04-29 18:36 | ER Document Report ---
ED General - General Chief Complaint: Knee Pain Stated Complaint: LEFT KNEE PAIN, BACK PAIN Time Seen by Provider: 04/29/20 17:22 Primary Care Provider: KERRY REDDING PA-C [Primary Care Provider] - Follow up as needed Notes: 44-year-old female presents emergency department complaining of left knee pain for the past month and a half. States she initially thought it was may be a new flare of her rheumatoid arthritis but when she tried things that have worked in the past it did not get better. There was no improvement with rest, Puma wrap, heat or Aspercreme. Patient states that the pain is right at and just below the joint line. States that the pain when she palpates her knee will radiate to the back of her knee and she also have intermittent muscle spasms in her leg at night. States that her knee will lock up on her and cause her to fall and then spontaneously unlock. Patient also complains of occasional numbness and tingling to her foot that feels like a bunch of fire ant bites that then self re solves. Denies any bowel or bladder dysfunction, denies any saddle anesthesia, though she does state that she occasionally has pain that radiates from her left buttock to her left knee but it does not go to below the knee. Denies any recent injury, does state that she had a similar problem approximately 2 years ago after a fall and at that time imaging was negative. Has not followed up with an orthopedic surgeon, has not had an MRI. TRAVEL OUTSIDE OF THE [place] IN LAST 30 DAYS: No - Related Data Allergies/Adverse Reactions: Penicillins Allergy (Intermediate, Verified 04/29/20 16:07) Hives Past Medical History - General Information source: Patient - Social History Smoking Status: Former Smoker Frequency of alcohol use: None Drug Abuse: None Family History: Arthritis, CAD, CVA, DM, Hyperlipidemia, Hypertension, Malignancy Patient has homicidal ideation: No - Past Medical History Cardiac Medical History: Reports: Hx Hypertension Denies: Hx Coronary Artery Disease, Hx Heart Attack Pulmonary Medical History: Denies: Hx Asthma, Hx Bronchitis, Hx COPD, Hx Pneumonia Neurological Medical History: Denies: Hx Cerebrovascular Accident, Hx Seizures Renal/ Medical History: Denies: Hx Peritoneal Dialysis Musculoskeletal Medical History: Reports Hx Arthritis - ra Past Surgical History: Reports: Hx Gynecologic Surgery - ovarian cyst, Hx Hysterectomy, Hx Tonsillectomy - addenoidectomy, Hx Tubal Ligation - Immunizations Hx Diphtheria, Pertussis, Tetanus Vaccination: Yes Review of Systems - Review of Systems Constitutional: No symptoms reported Musculoskeletal: See HPI Neurological/Psychological: See HPI -: Yes All other systems reviewed and negative Physical Exam - Vital signs Vitals: Temp Pulse Resp BP Pulse Ox 98.8 F 97 24 H 187/86 H 96 04/29/20 13:25 04/29/20 13:25 04/29/20 13:25 04/29/20 13:25 04/29/20 13:25 Interpretation: Hypertensive, Tachypneic - General General appearance: Appears well, Alert In distress: None - HEENT Head: Normocephalic, Atraumatic Eyes: Normal Pupils: PERRL Mucous membranes: Moist - Respiratory Respiratory status: No respiratory distress. No: Cyanosis - Cardiovascular Pulses: Normal: Posterior tibial, Dorsalis pedis Normal capillary refill: Yes - Back Back: Normal, Nontender. No: Deformity/step-off, CVA tenderness, Vertebra tenderness Notes: Negative straight leg raising test on the left. 5 out of 5 great toe raising strength on the left. - Extremities Notes: Left knee is tender to palpation over the joint line and over the patella, no fluctuance, no effusion. There is crepitus with flexion and extension of the knee, there is no ligamentous laxity. Negative anterior and posterior drawer test. Complains of significant pain with flexion extension of the knee although I am able to take her knee through full range of motion. - Skin Skin Temperature: Warm Skin Moisture: Dry Skin Color: Normal Course - Re-evaluation Re-evalutation: 04/29/20 18:34 Suspect meniscal tear given the history of intermittently locking and causing her to fall. No evidence of trauma, history is not consistent with intermittent dislocation of the knee. Patient will have x-ray performed to make sure there is not a bony fragment from a ligamentous injury although ligamentous injury seems unlikely given physical examination. I have stressed the importance of following up with orthopedic surgery as an outpatient for an MRI to investigate likely meniscal tear. Discussed possibility of using a knee immobilizer versus other splint. Patient states she already has a knee immobilizer. Patient is quite dissatisfied with her feeling that she waited for hours today to have "nothing done." Patient did request a cortisone shot, discussed with patient why cortisone shots are not performed routinely in the emergency department. Again strongly recommended follow-up with orthopedic surgery as an outpatient. Patient already using NSAIDs for pain control. 04/29/20 19:41 Knee X-Ray 04/29/20 17:57 IMPRESSION: NEGATIVE STUDY OF THE LEFT KNEE. NO RADIOGRAPHIC EVIDENCE OF ACUTE INJURY. - Vital Signs Vital signs: Temp Pulse Resp BP Pulse Ox 98.8 F 97 24 H 187/86 H 96 04/29/20 14:00 04/29/20 13:25 04/29/20 13:25 04/29/20 13:25 04/29/20 13:25 Discharge - Discharge Clinical Impression: Left anterior knee pain Condition: Stable Disposition: HOME, SELF-CARE Additional Instructions: I suspect you have a tear of your meniscus in your left knee. This is the pad in your knee that helps to decrease pain when you walk. When you get a tear a little piece that can flip up and caught you need to lock up. The definitive way to diagnose this is to have an MRI of your knee. You will either need to see your primary care physician or follow-up with orthopedic surgery. Orthopedic surgery is usually the best specialty to see as they will be able to offer definitive care for what ever is going on with your knee. Your x-ray did not show any sign of fracture, not even an avulsion fracture which is little bony chip worn off because of a ligamentous injury. You may continue to use an Puma wrap for because you have frequent falls due to your knee locking up while you are walking you may also wear your knee immobilizer for comfort and increasing stability. This will not fix the problem but will decrease the likelihood of falling. Please return to the emergency department should you develop weakness in your legs, numbness in your feet or any new or concerning symptoms. Referrals: KERRY REDDING PA-C [Primary Care Provider] - Follow up as needed GELY KHAN MD [ACTIVE PROVISIONAL STAFF] - Follow up as needed
--- NOTE | 2020-04-29 19:05 | RADIOLOGY REPORT (SQ) ---
EXAM DESCRIPTION: KNEE LEFT 3 VIEWS IMAGES COMPLETED DATE/TIME: 04/29/2020 6:47 pm REASON FOR STUDY: left knee locking COMPARISON: None. NUMBER OF VIEWS: Three views. TECHNIQUE: AP, lateral, and sunrise patella radiographic images acquired of the left knee. LIMITATIONS: None. FINDINGS: MINERALIZATION: Normal. BONES: No acute fracture or dislocation. No worrisome bone lesions. JOINT: No effusion. SOFT TISSUES: No soft tissue swelling. No radio-opaque foreign body. OTHER: No other significant finding. IMPRESSION: NEGATIVE STUDY OF THE LEFT KNEE. NO RADIOGRAPHIC EVIDENCE OF ACUTE INJURY. TECHNICAL DOCUMENTATION: JOB ID: [id number] [employer]- All Rights Reserved Reading location - IP/workstation name: [email or web address]
[2020-04-29 20:35] VITALS: BP 150/94
== END 2020-04-29 20:44 | disposition home or self-care (01) ==
LOC: ER 13:17
DX: M25.562 Pain in left knee (principal); I10 Essential (primary) hypertension; Z88.0 Allergy status to penicillin
CPT/HCPCS: 99283